=== PATIENT | female | born 1995 | race Caucasian/White ===

== ENCOUNTER 2018-05-24 16:41 | Emergency (ER) | payer BC ==
--- NOTE | 2018-05-24 17:39 | ED ---
Skin/Abscess/FB HPI - General Chief complaint: Skin/Abscess/Foreign Body Stated complaint: lump on leg Time Seen by Provider: 05/24/18 16:49 Source: patient, RN notes reviewed, old records reviewed Mode of arrival: ambulatory Limitations: no limitations - History of Present Illness Initial comments: Patient is a 22-year-old female presents today with a lump over her right labia and perineal area. Patient ports that started 2 days ago. She reports is painful for her to sit.Patient reports that she normally sheets her pubic region. Patient states that she's had no abnormal vaginal bleeding or discharge. Patient denies concern for STD. Patient states that she has no abdominal pain. She denies any history of resistant skin infection such as MRSA. - Related Data Previous Rx's Medication Instructions Recorded Sulfamethox-Tmp 800-160Mg [Bactrim 1 tab PO Q12HR #20 tab 05/24/18 DS 800-160 mg] Allergies Allergy/AdvReac Type Severity Reaction Status Date / Time No Known Allergies Allergy Verified 05/24/18 17:34 Review of Systems ROS Statement: Those systems with pertinent positive or pertinent negative responses have been documented in the HPI. ROS Other: All systems not noted in ROS Statement are negative. Past Medical History Past Medical History: No Reported History History of Any Multi-Drug Resistant Organisms: None Reported Past Surgical History: No Surgical Hx Reported Past Psychological History: No Psychological Hx Reported Smoking Status: Never smoker Past Alcohol Use History: None Reported Past Drug Use History: None Reported General Exam - General Exam Comments Initial Comments: 22-year-old female. Alert and oriented 3. Patient appears in no acute distress. General: Well appearing, well nourished, in no distress. Oriented x 3, normal mood and affect . Ambulating without difficulty. Skin: Good turgor, no rash, unusual bruising or prominent lesions Hair: Normal texture and distribution. HEENT: Head: Normocephalic, atraumatic, no visible or palpable masses, depressions, or scaring. Heart: No cardiomegaly or thrills; regular rate and rhythm, no murmur or gallop Lungs: Clear to auscultation and percussion Abdomen: Bowel sounds normal, no tenderness, organomegaly, masses, or hernia Back: Spine normal without deformity or tenderness, no CVA tenderness Extremities: No amputations or deformities, cyanosis, edema or varicosities, peripheral pulses intact Musculoskeletal: Normal gait and station. No misalignment, asymmetry, crepitation, defects, tenderness, masses, effusions, decreased range of motion, instability, atrophy or abnormal strength or tone in the head, neck, spine, ribs , pelvis or extremities. Neurologic: CN 2-12 normal. Sensation to pain, touch, and proprioception normal. DTRs normal in upper and lower extremities. No pathologic reflexes. Pelvic: Vagina and cervix without lesions or discharge.Patient has evidence of Bartholin's gland cyst/abscess over the right labial area. Skin is erythematous. Limitations: no limitations Course Vital Signs 05/24/18 05/24/18 16:44 19:01 Temperature 98.7 F 98.2 F Pulse Rate 104 H 92 Respiratory 20 18 Rate Blood Pressure 124/73 120/68 O2 Sat by Pulse 99 99 Oximetry Procedures - Incision & Drainage Site: vulva/vagina (right Bartholin's gland abscess) Size (cm): 4 Anesthetic Used: lidocaine 1% Amount (mLs): 5 I&D Cleaning Method: Iodine Sterile Field Used?: Yes Scalpel Used: #11 I&D Drainage Obtained: Pus, Blood Culture Obtained?: Yes Patient Tolerated Procedure: well, no complications Medical Decision Making - Medical Decision Making 22-year-old female presented to resources to plan of lumbar perineal region for the past 2 days. Patient has evidence of a Bartholin's gland cyst/abscess. Patient abscess was drained. She tolerated procedure well. I attempted multiple times to insert a Wurd catheter however was unsuccessful continue to follow out. Patient has been advised to do frequent sitz baths. Given prescription for antibiotics. I discussed [facility] follow-up. All questions answered return parameters were discussed. - Lab Data Lab Results 05/24/18 05/24/18 Range/Units 17:58 17:58 Urine Color Light Yellow Urine Appearance Clear (Clear) Urine pH 6.5 (5.0-8.0) Ur Specific Reading 1.012 (1.001-1.035) Urine Protein Negative (Negative) Urine Glucose (UA) Negative (Negative) Urine Ketones Trace H (Negative) Urine Blood Negative (Negative) Urine Nitrite Negative (Negative) Urine Bilirubin Negative (Negative) Urine Urobilinogen <2.0 (<2.0) mg/dL Ur Leukocyte Esterase Trace H (Negative) Urine WBC 1 (0-5) /hpf Ur Squamous Epith Cells 2 (0-4) /hpf Urine Mucus Rare H (None) /hpf Urine HCG, Qual Not Detected (Not Detectd) Disposition Clinical Impression: Bartholin's gland abscess Disposition: HOME SELF-CARE Condition: Good Instructions (If sedation given, give patient instructions): Bartholin Cyst (ED ) Additional Instructions: Patient advised to follow-up with primary care physician. Return to emergency department if any alarming signs or symptoms occur. Prescriptions: Sulfamethox-Tmp 800-160Mg [Bactrim DS 800-160 mg] 1 tab PO Q12HR #20 tab Is patient prescribed a controlled substance at d/c from ED?: No Referrals: Terrell Cardoso MD [Primary Care Provider] - 1-2 days Susy Mccall MD [STAFF PHYSICIAN] - 1-2 days Time of Disposition: 18:31
[2018-05-24] MEDS ORDERED: LIDOCAINE 1% INJ 10MG/ML (20 ML MDV) SQ ONE (17:48)
[2018-05-24 18:08] LABS: Appearance,Urine Clear (Clear); Bilirubin,Urine Negative (Negative); Blood,Urine Negative (Negative); Color,Urine Light Yellow; Glucose,Urine (UA) Negative (Negative); Ketones,Urine Trace (Negative); Leukocyte Esterase,Urine Trace (Negative); Mucus,Urine Rare /hpf; Nitrite,Urine Negative (Negative); PH, Urine 6.5 (5.0-8.0); Protein,Urine Negative (Negative); Specific Gravity,Urine 1.012 (1.001-1.035); Squamous Epithelial Cell,Urine 2 /hpf (0-4); Urobilinogen,Urine <2.0 mg/dL (<2.0)
[2018-05-24] MEDS ORDERED: IBUPROFEN 600 MG STARTER PACK 4 TAB BTL PO STA (18:32)
[2018-05-24 19:02] VITALS: BP 120/68; PULSE 92; RESP 18; TEMP 98.2
== END 2018-05-24 19:02 | disposition home or self-care (01) ==
LOC: EC 16:41
DX: N75.1 Abscess of Bartholin's gland (principal)
CPT/HCPCS: 81001; 81025; 87070; 87205; 99284; 56420; J2001

== ENCOUNTER 2018-05-27 17:11 | Emergency (ER) | payer BC ==
[2018-05-27 17:16] VITALS: RESP 18
--- NOTE | 2018-05-27 17:42 | ED ---
General Adult HPI <Edmar Zelaya P - Last Filed: 05/27/18 21:03> - General Source: patient, RN notes reviewed Mode of arrival: ambulatory Limitations: no limitations <Alejandra Guzman - Last Filed: 05/27/18 21:14> - General Chief complaint: Skin/Abscess/Foreign Body Stated complaint: Cyst on leg Time Seen by Provider: 05/27/18 17:30 - History of Present Illness Initial comments: Patient is a 22-year-old female who presents emergency department with her mother with complaint of pain in the perineal area for 9 days. She was here for the same (incision and drainage of Bartholin's gland abscess). She was prescribed Bactrim and she states that she has been taking it. She has not followed up with her PCP or [employer]. Denies vaginal discharge or bleeding. Denies pelvic pain or concern for STDs. Patient denies any recent fever, chills , shortness of breath, chest pain, back pain, abdominal pain, nausea or vomiting , numbness or tingling, dysuria or hematuria, constipation or diarrhea, headaches or visual changes, or any other complaints. (Alejandra Guzman) - Related Data Previous Rx's Medication Instructions Recorded Sulfamethox-Tmp 800-160Mg [Bactrim 1 tab PO Q12HR #20 tab 05/24/18 DS 800-160 mg] Allergies Allergy/AdvReac Type Severity Reaction Status Date / Time No Known Allergies Allergy Verified 05/27/18 17:16 Review of Systems ROS Other: All systems not noted in ROS Statement are negative. <Edmar Zelaya P - Last Filed: 05/27/18 21:03> ROS Other: All systems not noted in ROS Statement are negative. <Alejandra Guzman - Last Filed: 05/27/18 21:14> ROS Statement: Those systems with pertinent positive or pertinent negative responses have been documented in the HPI. Past Medical History Past Medical History: No Reported History History of Any Multi-Drug Resistant Organisms: None Reported Past Surgical History: No Surgical Hx Reported Additional Past Surgical History / Comment(s): Cyst removed 05/24/18 Past Psychological History: No Psychological Hx Reported Smoking Status: Never smoker Past Alcohol Use History: None Reported Past Drug Use History: None Reported <Alejandra Guzman - Last Filed: 05/27/18 21:14> General Exam Limitations: no limitations General appearance: alert, in no apparent distress Head exam: Present: atraumatic, normocephalic Eye exam: Present: normal appearance Respiratory exam: Present: normal lung sounds bilaterally. Absent: wheezes, rales, rhonchi Cardiovascular Exam: Present: regular rate, normal rhythm External exam: Present: erythema, swelling (Right labia area; approx. 4x4cm.) Neurological exam: Present: alert, oriented X3 <Alejandra Guzman E - Last Filed: 05/27/18 21:14> Vital Signs 05/27/18 17:13 Temperature 97.7 F Pulse Rate 97 Respiratory 18 Rate Blood Pressure 119/68 O2 Sat by Pulse 99 Oximetry Procedures - Incision & Drainage Consent Obtained: verbal consent Indication: bartholins Site: vulva/vagina (right bartholins cyst) Anesthetic Used: lidocaine 1% Amount (mLs): 3 I&D Cleaning Method: Betadine Sterile Field Used?: Yes Scalpel Used: #11 Needle Aspiration Performed?: No Irrigation Performed?: No I&D Drainage Obtained: Pus (loculations broken ) Culture Obtained?: No Patient Tolerated Procedure: well, no complications, other (word cathetered inserted with 3 cc of NS) <Edmar Zelaya P - Last Filed: 05/27/18 21:03> Medical Decision Making <Edmar Zelaya P - Last Filed: 05/27/18 21:03> <Alejandra Guzman E - Last Filed: 05/27/18 21:14> - Medical Decision Making I&D with catheter placement for treatment of Bartholin's gland abscess. Patient already has Bactrim from last visit. Case discussed in detail with attending physician Dr. Roy. (Alejandra Guzman) - Lab Data Lab Results 05/27/18 Range/Units 19:00 Urine Color Yellow Urine Appearance Clear (Clear) Urine pH 6.0 (5.0-8.0) Ur Specific [place] 1.024 (1.001-1.035) Urine Protein Trace H (Negative) Urine Glucose (UA) Negative (Negative) Urine Ketones 1+ H (Negative) Urine Blood Moderate H (Negative) Urine Nitrite Negative (Negative) Urine Bilirubin Negative (Negative) Urine Urobilinogen <2.0 (<2.0) mg/dL Ur Leukocyte Esterase Negative (Negative) Urine RBC 2 (0-5) /hpf Urine WBC 11 H (0-5) /hpf Ur Squamous Epith Cells 1 (0-4) /hpf Urine Mucus Many H (None) /hpf Disposition <Edmar Zelaya P - Last Filed: 05/27/18 21:03> Is patient prescribed a controlled substance at d/c from ED?: No Time of Disposition: 21:08 <Alejandra Guzman - Last Filed: 05/27/18 21:14> Clinical Impression: Bartholin's gland abscess Disposition: HOME SELF-CARE Condition: Good Instructions (If sedation given, give patient instructions): Abscess Incision and Drainage (ED) Additional Instructions: Follow-up with your PCP or coding team lead in 1 to 2 days. Continue taking Bactrim as prescribed previously. Return to the emergency department if your symptoms worsen or other concerns. Referrals: Terrell Cardoso MD [Primary Care Provider] - 1-2 days
[2018-05-27 19:30] LABS: Appearance,Urine Clear (Clear); Bilirubin,Urine Negative (Negative); Blood,Urine Moderate (Negative); Color,Urine Yellow; Glucose,Urine (UA) Negative (Negative); Ketones,Urine 1+ (Negative); Leukocyte Esterase,Urine Negative (Negative); Mucus,Urine Many /hpf; Nitrite,Urine Negative (Negative); Protein,Urine Trace (Negative); RBC,Urine 2 /hpf (0-5); Specific Gravity,Urine 1.024 (1.001-1.035); Squamous Epithelial Cell,Urine 1 /hpf (0-4); Urobilinogen,Urine <2.0 mg/dL (<2.0); WBC,Urine 11 /hpf (0-5)
[2018-05-27] MEDS ORDERED: LIDOCAINE 1% INJ 10MG/ML (20 ML MDV) SQ STA (20:00)
[2018-05-27 21:15] VITALS: BP 120/53; PULSE 101; TEMP 97.9
== END 2018-05-27 21:10 | disposition home or self-care (01) ==
LOC: EC 17:11
DX: N75.1 Abscess of Bartholin's gland (principal)
CPT/HCPCS: 99283; 56420; 81001; C1729; J2001